=== PATIENT | female | born 1950 | race Caucasian/White ===

== ENCOUNTER 2022-10-16 12:45 | Outpatient (CLI) | payer MEDICARE | END 2022-10-16 12:46 | disposition home or self-care (01) | LOC: CSHMAMMO 12:45 | PROVIDERS: ATTEND Internal Medicine | DX: Z12.31 Encounter for screening mammogram for malignant neoplasm of breast (principal) | CPT/HCPCS: 77063; 77067 ==

== ENCOUNTER 2024-10-20 10:32 | Outpatient (CLI) | payer MEDICARE | END 2024-10-20 10:33 | disposition home or self-care (01) | LOC: CSHMAMMO 10:32 | PROVIDERS: ATTEND Internal Medicine | DX: Z12.31 Encounter for screening mammogram for malignant neoplasm of breast (principal); Z85.71 Personal history of Hodgkin lymphoma; Z87.898 Personal history of other specified conditions | CPT/HCPCS: 77063; 77067 ==